=== PATIENT | female | born 1940 | race Caucasian/White ===

== ENCOUNTER 2022-03-30 13:58 | Outpatient (CLI) | payer OTHER, SELFPAY ==
--- NOTE | ~2022-03-30 | MMUS_ITS ---
EXAMINATION: MM diagnostic swathi BI w anai, US breast BI limited HISTORY: Palpable mass in the upper inner quadrant of the right breast TECHNIQUE: Craniocaudal, mediolateral, and mediolateral oblique 3-D tomosynthesis images of the jess ts were performed and synthetic 2-D images were generated. CAD analysis was submitted and interpreted . High resolution limited bilateral breast ultrasound was performed. COMPARISON: No prior mammogram is currently available for comparison. BREAST PARENCHYMAL COMPOSITION: There are scattered areas of fibroglandular density. FINDINGS: MAMMOGRAPHIC FINDINGS: Right breast: There is a 2.9 x 2.1 cm irregular, high density mass with indistinct margins in the mid dle third of the upper inner quadrant of the breast at the 2:00 location 3 cm from the nipple corresp onding to the palpable abnormality of concern. There is associated architectural distortion and nippl e retraction. Left breast: There is an 11 mm irregular, equal density, obscured mass in the middle third of the upp er outer quadrant of the breast approximately 5 cm from the nipple. ULTRASOUND: Right breast: There is a 2.5 x 1.8 cm irregular, parallel, hypoechoic mass with microlobulated margin s, posterior acoustic enhancement,, and internal vascularity at the 12:00 o'clock location 3 cm from the nipple corresponding to the palpable abnormality concern. Left breast: There is a 7 mm x 4 mm irregular, parallel, hypoechoic mass with indistinct margins, pos terior acoustic shadowing, and no definite internal vascularity at the 1:00 location 3 cm from the ni pple. IMPRESSION: 1. Bilateral breast masses as described above. 2. Bilateral ultrasound guided biopsy is recommended. BI-RADS category 5, highly suggestive of malignancy. Reviewed, dictated and finalized at location A. IMPRESSION: 1. Bilateral breast masses as described above. 2. Bilateral ultrasound guided biopsy is recommended. BI-RADS category 5, highly suggestive of malignancy.
== END 2022-03-30 13:59 | disposition home or self-care (01) ==
LOC: ANHIMG 13:59
PROVIDERS: PCP Internal Medicine; Visit Provider Nurse Practitioner
DX: R92.8 Other abnormal and inconclusive findings on diagnostic imaging of breast (principal)
CPT/HCPCS: 76642; 77062; 77066; G0279

== ENCOUNTER 2022-04-22 09:17 | Outpatient (CLI) | payer OTHER, SELFPAY ==
--- NOTE | ~2022-04-22 | MMUS_ITS ---
MM post biopsy invasive BI, US breast biopsy LT w image, US breast biopsy RT w image EXAMINATION: US GUIDED NEEDLE BIOPSY WITH VACUUM ASSISTANCE DATE: 04/22/2022 11:04 CDT INDICATION: Bilateral breast masses identified on recent examination. Ultrasound-guided core biopsy is requested to evaluate for malignancy. TECHNIQUE AND FINDINGS: The risks and potential benefits of the procedure were discussed with the patient, and written inform ed consent was obtained. After sterile preparation of the right and left breast, 1% lidocaine was ut ilized for local anesthesia. 1% lidocaine with epinephrine was used for deep anesthesia. A 10G vacuum-assisted biopsy gun needle was advanced through to the outer edge of the region of inter est in the right breast from a medial approach utilizing sonographic guidance. A total of 5 tissue c ore samples were obtained through the lesion. An Inrad tissue marker clip was then placed at the bio psy site. Hemostasis was achieved. A 10G vacuum-assisted biopsy gun needle was advanced through to the outer edge of the region of inter est in the left breast from a lateral approach utilizing sonographic guidance. A total of 5 tissue c ore samples were obtained through the lesion. An Inrad tissue marker clip was then placed at the bio psy site. Hemostasis was achieved. The patient tolerated procedure well and there was no evidence of immediate complication. The patien t was given verbal instructions partly is from the department. [facility] The tissue samples were submitted to surgical pathology for histolog ic analysis. IMPRESSION: 1. Successful ultrasound-guided vacuum-assisted biopsy of bilateral breast masses with tissue marker placement. Please refer to pathology report for histologic analysis. Reviewed, dictated and finalized at location A. IMPRESSION: 1. Successful ultrasound-guided vacuum-assisted biopsy of bilateral breast mas ses with tissue marker placement. Please refer to pathology report for histolog ic analysis. IMPRESSION: 1. Successful ultrasound-guided vacuum-assisted biopsy of bilateral breast mas ses with tissue marker placement. Please refer to pathology report for histolog ic analysis.
== END 2022-04-22 09:18 | disposition home or self-care (01) ==
PROVIDERS: PCP Internal Medicine; Visit Provider Nurse Practitioner
DX: R92.8 Other abnormal and inconclusive findings on diagnostic imaging of breast (principal); N63.20 Unspecified lump in the left breast, unspecified quadrant; N63.10 Unspecified lump in the right breast, unspecified quadrant
CPT/HCPCS: 19083; 88305; 88342; 88360; A4648

== ENCOUNTER 2022-06-18 13:45 | Outpatient (CLI) | payer OTHER, SELFPAY ==
--- NOTE | ~2022-06-18 | CT_ITS ---
EXAMINATION: CT chest abdomen pelvis w con DATE: 06/18/2022 14:23 INDICATION: Malignant neoplasm of the breasts TECHNIQUE: Transaxial computed tomographic images of the chest, abdomen, and pelvis were obtained aft er the administration of 100 cc of Omnipaque 350 intravenous contrast. The dose-length product (DLP) was 333.03 mGy-cm. Automated exposure control and iterative reconstruction technique were employed. COMPARISON: 10/15/2017 FINDINGS: CHEST CT: There is a small left pleural effusion. There are areas of subpleural atelectasis in the lingula and left lower lobe. There is moderate emphysema. There is a moderate amount of mucus in the left mainste m bronchus and left upper lobe bronchus. There is no pneumothorax. No pathologically enlarged thoraci c lymph nodes are identified. The heart size is normal. There is a 2.5 cm mass of the right breast wi th a biopsy marker. A biopsy marker is also noted in the left breast. There is calcified atherosclero sis. There is moderate thoracic spondylosis. ABDOMEN/PELVIS CT: The gallbladder is surgically absent. There is mild enlargement of the common bile duct and central i ntrahepatic ducts which is likely due to post cholecystectomy state. Punctate calcifications in an ot herwise normal spleen likely represent healed granulomatous disease. The liver, pancreas, gallbladder , and adrenal glands are normal. Hypoattenuating lesions in the kidneys, measuring up to 4 mm on the left, are too small to characterize but likely represent cysts. No pathologically enlarged abdominal or pelvic lymph nodes are identified. Colonic diverticulosis is present without evidence of diverticu litis. The appendix is normal. There is a 4.8 cm fusiform infrarenal abdominal aortic aneurysm. There is moderate lumbar spondylosis. IMPRESSION: 1. No evidence of metastatic disease. 2. Emphysema. 3. 4.8 cm fusiform infrarenal abdominal aortic aneurysm. 4. Right breast mass, consistent with biopsy-proven malignancy 5. Small left pleural effusion with areas of atelectasis in the lingula and left lower lobe. Reviewed, dictated and finalized at location A. IMPRESSION: 1. No evidence of metastatic disease. 2. Emphysema. 3. 4.8 cm fusiform infrarenal abdominal aortic aneurysm. 4. Right breast mass, consistent with biopsy-proven malignancy 5. Small left pleural effusion with areas of atelectasis in the lingula and lef t lower lobe.
[2022-06-18 14:15] LABS: Estimated Glomerular Filt Rate 48
== END 2022-06-18 13:46 | disposition home or self-care (01) ==
PROVIDERS: PCP Internal Medicine; Visit Provider Internal Medicine Hematology & Oncology
DX: C50.911 Malignant neoplasm of unspecified site of right female breast (principal); C50.912 Malignant neoplasm of unspecified site of left female breast; Z17.0 Estrogen receptor positive status [ER+]; K57.30 Diverticulosis of large intestine without perforation or abscess without bleeding; I70.0 Atherosclerosis of aorta; M47.814 Spondylosis without myelopathy or radiculopathy, thoracic region; J43.9 Emphysema, unspecified; I71.4 Abdominal aortic aneurysm, without rupture; J90 Pleural effusion, not elsewhere classified
CPT/HCPCS: 71260; 74177; Q9967